=== PATIENT | male | born 1965 | race Two or more races ===

== ENCOUNTER 2024-10-05 07:32 | Day surgery (SDC) | payer MEDICAID ==
[2024-10-03 14:40] LABS: Urine Bacteria None Seen /hpf (None Seen)
[2024-10-03 14:42] LABS: Basophils # (auto) 0.1 10 ^3/uL (0-0.2); Basophils % (auto) 0.7 % (0.0-2.0); Eosinophils # (auto) 0.1 10 ^3/uL (0-0.8); Eosinophils % (auto) 1.8 % (0.0-7.0); Hematocrit 45.3 % (41.0-53.0); Hemoglobin 15.4 g/dL (13.5-17.5); Lymphocytes # (auto) 1.9 10 ^3/uL (0.4-5.4); Lymphocytes % (auto) 24.4 % (10.0-50.0); Mean Corpuscular Hemoglobin 30.2 pg (28.0-32.0); Mean Corpuscular Hgb Conc. 33.9 g/dL (32.0-36.0); Mean Corpuscular Volume 89.1 fL (80.0-100.0); Monocytes # (auto) 0.5 10 ^3/uL (0-1.3); Monocytes % (auto) 6.4 % (0.0-12.0); Neutrophils # (auto) 5.2 10 ^3/uL (1.6-8.6); Neutrophils % (auto) 66.7 % (37.0-80.0); Platelet Count (auto) 201 10^3/uL (140-450); Red Blood Cells 5.09 10^6/uL (4.5-5.90); Red Cell Distribution Width 13.7 % (11.8-14.3); White Blood Cell 7.8 10^3/uL (4.4-10.8)
[2024-10-03 14:57] LABS: INR 0.99 (0.9-1.15); Partial Thromboplastin Time 26.6 SEC (24.5-34.5); Prothrombin Time 10.5 sec (9.3-11.8)
[2024-10-03 15:03] LABS: Alanine Aminotransferase 32 U/L (7-40); Albumin 4.4 g/dL (3.2-4.8); Alkaline Phosphatase 52 U/L (46-116); Anion Gap 7 (5-15); Aspartate Aminotransferase 21 U/L (13-40); BUN/Creatinine Ratio 9.8 (10.0-20.0); Bilirubin, Total 0.3 mg/dL (0.2-1.0); Blood Urea Nitrogen 13 mg/dL (9-23); Calcium 8.9 mg/dL (8.7-10.4); Carbon Dioxide 28 mmol/L (20-31); Chloride 106 mmol/L (98-107); Glucose 97 mg/dL (74-106); Potassium 4.1 mmol/L (3.5-5.1); Sodium 141 mmol/L (136-145); Total Protein 6.8 g/dL (5.7-8.2)
[2024-10-03 15:04] LABS: Urine Blood Negative /uL (Negative); Urine Clarity Clear (Clear); Urine Color Yellow (Yellow); Urine Protein, UAD Negative (Negative); Urine Specific Gravity 1.019 (1.001-1.035); Urine Squamous Epithelial Cell None Seen /hpf (<5); Urine Urobilinogen Normal (Negative); Urine WBC < 1 /HPF (0-3); Urine pH 6.5 (5.0-9.0)
[~2024-10-05] VITALS: Ht 185.4 cm; Wt 78.5 kg
[~2024-10-05 07:32] MED LIST: BORO1POW XX; CHOL20007 OR; MAGN200T12 PO; ZINC100T5 PO; [UNRECOGNIZED DRUG - CODE] PO
--- NOTE | 2024-10-05 09:12 | DVHHP2 ---
GI H&P Pre-Op Assessment Date: 10/05/24 Chief complaint: colon cancer screening HPI: per clinic note Past medical history: per clinic note Past surgical history: per clinic note Family history: per clinic note Physical exam: General: NAD, AAOX3 HEENT: PERRL, no scleral icterus, normal hearing, gums without lesions or bleeding, oropharynx clear without erythema or exudate. Neck: Supple without enlargement of the thyroid, or lymphadenopathy. Chest: Normal size and shape, no tenderness, lung rocha clear to auscultation and percussion, nonlabored breathing. Heart: RRR, no murmur Abdomen: non-distended, no tenderness to palpation, +BS, no hepatosplenomegaly Extremities: no edema Neurological: CN II-XII intact, sensation intact in all extremities, 5+ strength in all extremities Skin: No rashes, No jaundice Assessment: - colon cancer screening Plan: - Colonoscopy - Risks (bleeding, infection, perforation, reaction to sedation medications and cardiopulmonary arrest) and benefit of the procedure were explained to patient. Patient agrees to undergo the procedure. SHAILESH GAYLE MD Oct 05, 2024 09:12
[2024-10-05] MEDS ORDERED: LIDOCAINE 1% INJ PF 5ML AMP ONE (09:14)
[2024-10-05] MEDS ORDERED: PROPOFOL 10 MG/ML 20 ML IV ONE ×2 (09:14→09:27)
[2024-10-05 09:39] VITALS: PULSE 65; RESP 22; TEMP 96.8; O2SAT 97
--- NOTE | 2024-10-05 09:40 | DVHOP2 ---
Operative Report DATE OF OPERATION: 10/05/24 PROCEDURE: Colonoscopy. PREOPERATIVE INDICATION: The patient is a 59 -year-old male with history of colon polyp undergoing colonoscopy for colon cancer screening. POSTOPERATIVE DIAGNOSES: 1. 5 mm rectal polyp was removed with hot snare. 2. Internal hemorrhoids PROCEDURE PERFORMED BY: Max Bellamy M.D. SCOPE: Olympus videocolonoscope. ASA CLASS: 3 PREOPERATIVE MEDICATIONS: MAC with [employer] PROCEDURE IN DETAIL: After obtaining an informed consent, the patient was placed on left lateral decubitus position. He was then sedated with the above medications. A rectal examination was performed that was normal. The colonoscope was then passed through the anus into the rectosigmoid and through the descending, transverse, and ascending colon up to the cecum with visualization of the appendiceal orifice, base of the cecum and the ileocecal valve. A 5 mm rectal polyp was removed with hot snare. There were internal hemorrhoids. The colonoscope was then withdrawn. The patient tolerated the procedure well without difficulty. WITHDRAWAL TIME: 9 minutes QUALITY OF THE PREP: [place] Bowel Prep score: 6 COMPLICATIONS : None SPECIMENS: Colon polyp DISPOSITION: D/C to home PLAN: 1. Repeat colonoscopy base on biopsy result MAX BELLAMY MD Oct 05, 2024 09:39
--- NOTE | 2024-10-05 09:40 | DVHDS2 ---
Physician Discharge Progress N Final Diagnosis: Colon polyp, diverticulosis Operations or Procedures: Operations or Procedures Colonoscopy with hot snare polypectomy Condition on Discharge: Good Disposition: Home Discharge Instructions: Diet: Regular Activity: No Restrictions, As Tolerated Medications: Resume previous home medications Follow Up Care: Discharge Statement: "Patient was advised to return to the ER or call 911 if any headaches, dizziness, shortness of breath, chest pain, abdominal pain, bleeding, fevers, or worsening of medical condition. Patient was counseled about treatment plan, medications, possible side effects, patientverbalized understanding. All questions were answered to the best of my ability. This discharge took greater then 30 minutes in planning, reviewing documentation, counseling the patient, and discussing with other team members." SHAILESH GAYLE MD Oct 05, 2024 09:40
[2024-10-05 09:49] VITALS: PULSE 66; RESP 21; O2SAT 95
[2024-10-05 10:04] VITALS: BP 92/60; PULSE 62; RESP 16; O2SAT 96
== END 2024-10-05 10:15 | disposition home or self-care (01) ==
LOC: GI 07:32
PROVIDERS: ATTEND Internal Medicine Gastroenterology
DX: Z09 Encounter for follow-up examination after completed treatment for conditions other than malignant neoplasm (principal); K63.5 Polyp of colon; K64.8 Other hemorrhoids; K62.1 Rectal polyp; Z86.0100 Personal history of colon polyps, unspecified; D12.8 Benign neoplasm of rectum; Z98.890 Other specified postprocedural states
CPT/HCPCS: 36415; 45385; 80053; 81001; 85025; 85610; 85730; 88305; J2704; J7030